=== PATIENT | female | born 2000 | race Caucasian/White ===

== ENCOUNTER 2018-01-08 07:15 | Emergency (ER) | payer OTHER ==
[2018-01-08] MEDS ORDERED: Ketorolac INJ* 30 MG/ML 1 ML VIAL IV PUSH ONE (09:13)
[2018-01-08 09:59] LABS: ABS Basophils 0 10^3/ul (0-0.2); ABS Eosinophils 0.1 10^3/ul (0-0.6); ABS Lymphocytes 2.3 10^3/ul (1.0-4.8); ABS Monocytes 0.6 10^3/ul (0-0.8); ABS Neutrophils 5.3 10^3/ul (1.5-7.7); ABS Nucleated RBC 0 10^3/ul; Eosinophil % 0.6 % (0-6); Hematocrit 42 % (35-47); Hemoglobin 14.2 g/dl (12.0-16.0); Lymphocyte % 27.9 % (25-47); Mean Corpuscular HGB Conc 34 g/dl (31-36); Mean Corpuscular Hemoglobin 30 pg (27-31); Mean Corpuscular Volume 88 fL (80-97); Mean Platelet Volume 7.3 um3 (7.4-10.4); Nucleated Red Blood Cells % 0.1; Platelet Count 261 10^3/ul (150-450); Red Blood Count 4.78 10^6/ul (4.0-5.4); Red Cell Distribution Width 13 % (10.5-15); White Blood Count 8.3 10^3/ul (3.5-10.8)
[2018-01-08 10:17] LABS: EGFR Non-African American 155.4 (>60)
--- NOTE | 2018-01-08 11:11 | RAD ---
HISTORY: Hip pain COMPARISONS: None VIEWS: 5, Frontal view of the pelvis with frontal and frog-leg views of the left hip and of the right hip FINDINGS: Right: BONE DENSITY: Normal. BONES: There is no displaced fracture. There is a small cam deformity of the right femoral neck. JOINTS: There is no arthropathy. ALIGNMENT: There is no dislocation. The alignment is anatomic. SOFT TISSUES: Unremarkable. Left: BONE DENSITY: Normal. BONES: There is no displaced fracture. There is a small cam deformity of the left femoral neck. JOINTS: There is no arthropathy. ALIGNMENT: There is no dislocation. The alignment is anatomic. SOFT TISSUES: Unremarkable. OTHER FINDINGS: None. IMPRESSION: CAN DEFORMITIES OF THE FEMORAL NECKS BILATERALLY WHICH CAN BE ASSISTED WITH ACETABULAR IMPINGEMENT SYNDROME IN THE CORRECT CLINICAL SETTING. NO ACUTE OSSEOUS INJURY. IF SYMPTOMS PERSIST, RECOMMEND REPEAT IMAGING
[2018-01-08 12:09] VITALS: BP 112/69
--- NOTE | 2018-01-08 20:54 | ED ---
Frederick Shook Angela, scribed for Jono Ochoa MD on 01/08/18 at 0815 . Lower Extremity - HPI Summary HPI Summary: This pt is a 17 y/o female presenting to [facility] c/o bilateral hip pain, more left than right, for the past week. Pt denies any trauma or injury. She states that the week prior to the onset of her pain she was going to the gym but then took 1 week off. Pt began going to the gym again yesterday and since then her pain has worsened. Pt does leg exercises, cycling and ballet. She rates her pain 7/10 in severity. Denies fever, weakness, knee pain, swelling, redness. LMP: 1 month ago. - History of Current Complaint Chief Complaint: EDExtremityLower Stated Complaint: HIP PAIN Time Seen by Provider: 01/08/18 08:08 Hx Obtained From: Patient Mechanism Of Injury: Other - no trauma Onset of Pain: Days Onset/Duration: Still Present Severity Currently: Moderate Pain Intensity: 4 Pain Scale Used: 0-10 Numeric Timing: Lasting Days Location: Is Discrete @ - bilateral hip pain, more left than right Associated Signs And Symptoms: Negative: Swelling, Redness, Bruising, Fever, Weakness Aggravating Factor(s): Nothing Alleviating Factor(s): Nothing - Allergies/Home Medications Allergies/Adverse Reactions: Allergies Allergy/AdvReac Type Severity Reaction Status Date / Time No Known Allergies Allergy Verified 01/08/18 07:26 Home Medications: Home Medications Doxycycline Monohydrate [Mondoxyne Nl] 100 mg PO BID PRN 01/08/18 [History Confirmed 01/08/18] PMH/Surg Hx/FS Hx/Imm Hx Endocrine/Hematology History: Denies: Hx Diabetes Cardiovascular History: Denies: Hx Hypertension Infectious Disease History: No Infectious Disease History: Denies: Traveled Outside the [place] in Last 30 Days - Family History Known Family History: Negative: Cardiac Disease - Social History Alcohol Use: None Substance Use Type: Reports: None Smoking Status (MU): Never Smoked Tobacco Review of Systems Negative: Fever ENT: Negative Cardiovascular: Negative Respiratory: Negative Gastrointestinal: Negative Musculoskeletal: Other - bilateral hip pain Neurological: Negative All Other Systems Reviewed And Are Negative: Yes Physical Exam - Summary Physical Exam Summary: VITAL SIGNS: Reviewed. GENERAL: Patient is a well-developed and nourished female who is lying comfortable in the stretcher. Patient is not in any acute respiratory distress. HEAD AND FACE: No signs of trauma. No ecchymosis, hematomas or skull depressions. No sinus tenderness. EYES: PERRLA, EOMI x 2, No injected conjunctiva, no nystagmus. EARS: Hearing grossly intact. Ear canals and tympanic membranes are within normal limits. MOUTH: Oropharynx within normal limits. NECK: Supple, trachea is midline, no adenopathy, no JVD, no carotid bruit, no c- spine tenderness, neck with full ROM. CHEST: Symmetric, no tenderness at palpation LUNGS: Clear to auscultation bilaterally. No wheezing or crackles. CVS: Regular rate and rhythm, S1 and S2 present, no murmurs or gallops appreciated. ABDOMEN: Soft, non-tender. No signs of distention. No rebound no guarding, and no masses palpated. Bowel sounds are normal. EXTREMITIES: no edema, no cyanosis or clubbing. Decreased ROM of left hip secondary to pain. No deformity. No hematomas. No ecchymosis. Tenderness to palpation on left hip. No hernias. Good femoral pulses. NEURO: Alert and oriented x 3. No acute neurological deficits. Speech is normal and follows commands. SKIN: Dry and warm Triage Information Reviewed: Yes Vital Signs On Initial Exam: Initial Vitals Temp Pulse Resp BP Pulse Ox 97.8 F 72 16 117/61 98 01/08/18 07:23 01/08/18 07:23 01/08/18 07:23 01/08/18 07:23 01/08/18 07:23 Vital Signs Reviewed: Yes Diagnostics - Vital Signs Vital Signs Temp Pulse Resp BP Pulse Ox 01/08/18 07:23 97.8 F 72 16 117/61 98 - Laboratory Result Diagrams: 01/08/18 09:45 01/08/18 09:45 Lab Statement: Any lab studies that have been ordered have been reviewed, and results considered in the medical decision making process. - Radiology Bilateral hip XR Xray Interpretation: Positive (See Comments) - IMPRESSION: Cam deformities of the femoral necks bilaterally which can be assisted with acetabular impingement syndrome in the correct clinical setting. No acute osseous injury. If symptoms persist, recommend repeat imaging. Dr. Ochoa has reviewed this radiology report. Radiology Interpretation Completed By: ED Physician - No fracture or dislocation , Radiologist Lower Extremity Course/Dx - Course Assessment/Plan: This pt is a 17 y/o female presenting to [facility] c/o bilateral hip pain, more left than right, for the past week. Pt denies any trauma or injury. She states that the week prior to the onset of her pain she was going to the gym but then took 1 week off. Pt began going to the gym again yesterday and since then her pain has worsened. Pt does leg exercises, cycling and ballet. She rates her pain 7/10 in severity. Denies fever, weakness, knee pain, swelling, redness. LMP: 1 month ago. Test results without any significant abnormalities. Bilateral hip XR shows cam deformities of the femoral necks bilaterally which can be assisted with acetabular impingement syndrome in the correct clinical setting. No acute osseous injury. If symptoms persist, recommend repeat imaging. In the ED course the pt was given Toradol and her pain improved. XR shows no fracture or dislocation. Pt will be discharged home with follow up from her PCP. She was given a prescription for Naproxen. I discussed all the findings and test results with the patient. All questions were answered to patient satisfaction. She is instructed to return to the ED for any worsening or new symptoms. Pt is hemodynamically stable, alert and oriented x3. - Diagnoses Provider Diagnoses: Hip pain Discharge - Sign-Out/Discharge Documenting (check all that apply): Discharge/Admit/Transfer - discharge to home - Discharge Plan Condition: Stable Disposition: HOME Prescriptions: Naproxen [Naprosyn 500 mg tab] 500 mg PO BID PRN #20 tablet PRN Reason: Pain Patient Education Materials: Hip Bursitis (ED), Hip Pain (ED) Referrals: [facility] [Primary Care Provider] - Additional Instructions: Please follow up with your primary care provider. RETURN TO THE ED FOR ANY NEW OR WORSENING SYMPTOMS. The documentation as recorded by the Frederick de la fuente Angela accurately reflects the service I personally performed and the decisions made by me, Jono Ochoa MD.
== END 2018-01-08 12:07 | disposition home or self-care (01) ==
LOC: ED 07:15
DX: M25.552 Pain in left hip (principal); M25.551 Pain in right hip; Z32.02 Encounter for pregnancy test, result negative
CPT/HCPCS: 36415; 73523; 80053; 84702; 85025; 86140; 96374; 99282; J1885